=== PATIENT | female | born 1980 | race Two or more races ===

== ENCOUNTER 2023-04-22 09:38 | Day surgery (SDC) | payer OTHER ==
[~2023-04-22] VITALS: Ht 152.4 cm; Wt 71.7 kg
[~2023-04-22 09:38] MED LIST: DULA4.5I SC; GABA-1308 PO; GLIP10TA21 PO; HYDR50CA2 PO; LISI-275 PO; METF-372 PO; OXYB5TAB24 PO; PAR20T PO; PIO30T PO
[2023-04-22] MEDS ORDERED: KETOROLAC TROMETH 60MG/2ML VIAL ONE (10:25)
[2023-04-22] MEDS ORDERED: fentaNYL CITRATE 100 MCG/2 ML VL ONE (10:25)
[2023-04-22] MEDS ORDERED: ONDANSETRON HCL 4 MG/2 ML VIAL ONE (10:25)
[2023-04-22] MEDS ORDERED: LIDOCAINE 2% (LOCAL ANESTH.) PF 5ml SDV ONE (10:25)
[2023-04-22] MEDS ORDERED: GLYCOPYRROLATE 0.2 MG/ML 1ML VIAL ONE (10:25)
[2023-04-22] MEDS ORDERED: PROPOFOL 10 MG/ML 20 ML IV ONE (10:25)
[2023-04-22] MEDS ORDERED: DexAMETHasone SOD PHOS 10MG/1ML VIAL INJ ONE (10:25)
[2023-04-22] MEDS ORDERED: BUPIVACAINE HCL 0.25% P/F 10 ML VIAL ONE (10:57)
[2023-04-22] MEDS ORDERED: LIDOCAINE W/ EPINEPHRINE 1% 20ML VIAL ONE (10:57)
[2023-04-22] MEDS ORDERED: ACETAMINOPHEN IV 1000 MG/100ML (10MG/ML) IV ONE (11:00)
[2023-04-22] MEDS ORDERED: CELECOXIB 100 MG CAP PO ONE (11:00)
[2023-04-22] MEDS ORDERED: GABAPENTIN 400 MG CAP PO ONE (11:00)
[2023-04-22] MEDS ORDERED: CLINDAMYCIN 600MG IV 50 ML IV ONE (11:37)
[2023-04-22] MEDS ORDERED: ONDANSETRON HCL 4 MG/2 ML VIAL IV PRN ×2 (12:15→13:30)
[2023-04-22] MEDS ORDERED: CONJ ESTROGENS 0.625MG/GM VAG CRM 30GM PV ONE (12:58)
[2023-04-22 13:19] VITALS: TEMP 97.6; O2SAT 98
[2023-04-22] MEDS ORDERED: HYDROmorphone HCL 2 MG/ML VL/or syr IV PRN (13:30)
[2023-04-22] MEDS ORDERED: hydrALAZINE HCL 20 MG/ML VL IV PRN (13:30)
[2023-04-22] MEDS ORDERED: LABETALOL HCL 5 MG/ML 4ML SYRINGE IV PRN (13:30)
[2023-04-22] MEDS ORDERED: oxyCODONE ER 10 MG TAB PO ONE (13:30)
[2023-04-22] MEDS ORDERED: FLUMAZENIL 0.1 MG/ML INJ 10ML MDV IV PRN (13:30)
[2023-04-22] MEDS ORDERED: NALOXONE HCL 0.4 MG/ML VIAL IV PRN (13:30)
[2023-04-22] MEDS ORDERED: ePHEDrine SULFATE 50 MG/ML AMP IV PRN (13:30)
[2023-04-22] MEDS ORDERED: fentaNYL CITRATE 100 MCG/2 ML VL IV PRN (13:30)
[2023-04-22 14:32] VITALS: BP 121/84; PULSE 95; RESP 15; O2SAT 95
== END 2023-04-22 14:35 | disposition home or self-care (01) ==
LOC: SUR 09:38
PROVIDERS: ATTEND Obstetrics & Gynecology
DX: N39.3 Stress incontinence (female) (male) (principal); N81.10 Cystocele, unspecified; N76.0 Acute vaginitis
CPT/HCPCS: 36415; 57135; 57240; 57288; 82962; 84702; 88307; C1771; J0131; J1100; J1885; J2001; J2405; J2704; J3010; J3490